=== PATIENT | male | born 1990 | race Caucasian/White ===

== ENCOUNTER 2018-01-31 18:34 | Emergency (ER) | payer SELFPAY ==
[~2018-01-31] VITALS: Ht 170.2 cm; Wt 88.5 kg
[2018-01-31 18:38] VITALS: BP_SYST 157
[2018-01-31] MEDS ORDERED: IBUPROFEN 600 MG TABLET PO ONE (19:30)
[2018-01-31] MEDS ORDERED: cefTRIAXone 1 GM VIAL IM ONE (19:30)
[2018-01-31 20:00] VITALS: BP_SYST 135
[2018-01-31] MEDS ORDERED: LIDOCAINE 1% 10 MG/ML, 20 ML MDV INJ ONE (20:00)
== END 2018-01-31 20:00 | disposition home or self-care (01) ==
LOC: SED 18:34
DX: L03.114 Cellulitis of left upper limb (principal)
CPT/HCPCS: 96372; 99283; J0696